=== PATIENT | male | born 1970 | race Caucasian/White ===

== ENCOUNTER → 2019-12-21 07:52 | Outpatient (CLI) | payer BC, SELFPAY ==
--- NOTE | 2019-12-21 07:57 | US_ITS ---
PROCEDURE: US LIVER CLINICAL INDICATION: ABNORMAL LIVER FUNCTION TEST COMPARISON: ABDPELW/WO CT ABD PELVIS W/WO CONTRAST from 05/21/2014 FINDINGS: PANCREAS: There is a 3.6 by 1.5 cm cyst in the region of the pancreatic head. LIVER: The liver has somewhat coarse echogenicity. There is appropriate direction of blood flow within the portal vein which appears slightly dilated at 16 mm. Collateral vessels are present in the periportal area. RIGHT KIDNEY: Unremarkable. Normal size and echogenicity. No hydronephrosis GALLBLADDER: Small stones are present. No gallbladder wall thickening, pericholecystic fluid, or biliary dilatation is evident. Mild splenomegaly at 14 cm. IMPRESSION: 1. Cholelithiasis. 2. Suspect portal hypertension with mildly prominent portal vein and collateral vessels in the portal region along with some mild coarse echogenicity of the liver suggesting cirrhosis Dictated by: Garrett Muñoz MD 12/21/2019 14:50 Electronically signed by Garrett Muñoz MD in [place] 12/21/2019 14:50
== END ==
PROVIDERS: PCP Nurse Practitioner; Visit Provider Nurse Practitioner
DX: R94.5 Abnormal results of liver function studies (principal)
CPT/HCPCS: 76705

== ENCOUNTER → 2021-01-09 06:59 | Outpatient (CLI) | payer BC, SELFPAY ==
--- NOTE | 2021-01-09 07:10 | XR_ITS ---
PROCEDURE: XR ELBOW RT 2V CLINICAL INDICATION: RT ELBOW PAIN COMPARISON: No exams were available for comparison FINDINGS: No fracture or dislocation. No lytic or blastic change. There is normal mineralization. 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 There is some sub cortical sclerotic changes at the capitellum. No displaced fat pad. Other findings:None. 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 There is some subcortical sclerosis of the capitellum which may only be related to the osteoarthritis. Osteochondrosis would be included in the differential diagnosis. Dictated by: Garrett Muñoz MD 01/09/2021 07:28 Garrett Muñoz MD in [facility] 01/09/2021 07:28
== END ==
PROVIDERS: PCP Nurse Practitioner Family; Visit Provider Nurse Practitioner Family
DX: M25.521 Pain in right elbow (principal)
CPT/HCPCS: 73070

== ENCOUNTER 2021-03-27 00:49 | Emergency (ER) | payer BC, SELFPAY ==
[2021-03-27] VITALS (32 sets, daily range): BP systolic 76–124; BP diastolic 35–57; PULSE 72–93; RESP 20–27; TEMP 37.1–39.4; O2SAT 91–98; BMI 37.2
--- NOTE | 2021-03-27 00:55 | ECG_ITS ---
APPROVED REPORT Exam: Resting ECG HR:91 bpm ECG Measurements Heart Rate 91 AXES NM 144 P 48 QRSd 96 QRS 69 QT 338 T 72 QTc 415 Conclusion Normal sinus rhythm Low voltage QRS Borderline ECG Electronically signed by : Tristan Edwards, 03/27/2021 22:00:01
--- NOTE | 2021-03-27 01:02 | XR_ITS ---
PROCEDURE INFORMATION: Exam: XR Chest Exam date and time: 03/27/2021 1:02 AM Age: 50 years old Clinical indication: Other: Weakness, dizzy, abdomen swelling, jaundice; Additional info: Weakness, dizziness TECHNIQUE: Imaging protocol: XR of the chest. Views: 2 views. COMPARISON: CR CXR CHEST(2 VIEWS-NOT PORTABLE) 05/24/2014 6:17 PM FINDINGS: Lungs: Unremarkable. No consolidation. Pleural spaces: Unremarkable. No pleural effusion. No pneumothorax. Heart/Mediastinum: Unremarkable. No cardiomegaly. Bones/joints: Unremarkable. IMPRESSION: No acute findings.
--- NOTE | 2021-03-27 01:06 | CT_ITS ---
PROCEDURE INFORMATION: Exam: CT Abdomen And Pelvis With Contrast Exam date and time: 03/27/2021 1:06 AM Age: 50 years old Clinical indication: Bloating and other: Jaundice; Patient HX: Swelling in abdomen, jaundice, alcohol abuse; Additional info: Abdominal swelling/jaundice/alcohol history TECHNIQUE: Imaging protocol: Computed tomography of the abdomen and pelvis with contrast. Radiation optimization: All CT scans at this facility use at least one of these dose optimization techniques: automated exposure control; mA and/or kV adjustment per patient size (includes targeted exams where dose is matched to clinical indication); or iterative reconstruction. Contrast material: ISOVUE; Contrast volume: 75 ml; Contrast route: IV; COMPARISON: ABDPELW/WO CT ABD PELVIS W/WO CONTRAST 05/21/2014 11:35 AM FINDINGS: Liver: Stable lobulation and shrunken appearance of a liver is seen which is of increased density. These findings are most consistent with changes of hepatic cirrhosis. Gallbladder and bile ducts: Within the lumen of the gallbladder are multiple areas of increased density most consistent with gallstones. Diffuse edema is seen throughout the gallbladder wall which is more prominent along the hepatic surface than otherwise. Differential diagnosis would include primary gallbladder disease and cholecystitis versus reactive edema in the gallbladder secondary to adjacent hepatic disease and ascites. No choledocholithiasis is seen. HIDA study could be obtained if clinically indicated. Pancreas: Normal. No ductal dilation. Spleen: Normal. No splenomegaly. Adrenal glands: Normal. No mass. Kidneys and ureters: Normal. No hydronephrosis. Stomach and bowel: Diffuse edema is suggested throughout the colon raising the possibility of colitis. This is seen to the level of the rectus sigmoid colon. Underfilling could give a similar appearance. Follow-up based on clinical and laboratory findings is suggested. Appendix: No evidence of appendicitis. Intraperitoneal space: There is mild diffuse ascites. Vasculature: Portal hypertension with anterior abdominal wall varices are demonstrated these varices have occurred since the prior study. There are no definite associated gastric or esophageal varices. Lymph nodes: Unremarkable. No enlarged lymph nodes. Urinary bladder: Unremarkable as visualized. Reproductive: Unremarkable as visualized. Bones/joints: Unremarkable. No acute fracture. Soft tissues: Unremarkable. IMPRESSION: 1. Within the lumen of the gallbladder are multiple areas of increased density most consistent with gallstones. Diffuse edema is seen throughout the gallbladder wall which is more prominent along the hepatic surface than otherwise. Differential diagnosis would include primary gallbladder disease and cholecystitis versus reactive edema in the gallbladder secondary to adjacent hepatic disease and ascites. No choledocholithiasis is seen. HIDA study could be obtained if clinically indicated. 2. Diffuse edema is suggested throughout the colon raising the possibility of colitis. This is seen to the level of the rectus sigmoid colon. Underfilling could give a similar appearance. Follow-up based on clinical and laboratory findings is suggested. 3. Portal hypertension with anterior abdominal wall varices are demonstrated these varices have occurred since the prior study. There are no definite associated gastric or esophageal varices.
[2021-03-27 01:12] LABS: POC Glucose,Bedside 229 (70-110)
[2021-03-27 01:19] LABS: Basophils % 0.1 % (0.1-2.0); Eosinophils % 0.1 % (0.1-12.0); Hematocrit 46.1 % (42.0-52.0); Hemoglobin 15.8 g/dL (14.1-18.0); Lymphocytes # 0.1 K/mm3 (0.7-4.5); Lymphocytes % 2.3 % (10-50); Mean Corpuscular HGB Conc 34.2 g/dL (31.8-35.4); Mean Corpuscular Hemoglobin 34.4 pg (27.0-31.2); Mean Corpuscular Volume 100.6 fl (80-94); Mean Platelet Volume 10.7 fl (7.4-10.4); Monocytes # 0.4 K/mm3 (0.1-1.0); Monocytes % 6.5 % (1.7-9.3); Neutrophils % 91.1 % (37.0-80.0); Platelet Count 51 K/mm3 (142-424); Red Blood Count 4.59 M/mm3 (4.60-6.20); Red Cell Distribution Width 15.9 % (11.5-17.5); White Blood Count 5.5 K/mm3 (4.8-10.8)
[2021-03-27 01:20] LABS: Microscopic, Urine URINE MICROSCOPIC (MICROSCOPIC)
[2021-03-27 01:22] LABS: Appearance,Urine CLEAR (Clear); Blood, Urine 2+ (Negative); Color,Urine DK YELLOW (Yellow); Glucose,Urine (UA) 3+ (Negative); Ketones,Urine Negative (Negative); Leukocyte Esterase,Urine Negative (Negative); Nitrate,Urine Negative (Negative); Protein,Urine Negative (Negative); Specific Gravity, Urine 1.015 (1.005-1.030)
[2021-03-27 01:25] LABS: Bilirubin,Urine Negative (Negative)
[2021-03-27 01:26] LABS: MANUAL DIFFERENTIAL MANUAL DIFFERENTIAL (MANUAL DIFF)
[2021-03-27 01:30] LABS: Alanine Aminotransferase 53 U/L (12-78); Albumin Level 2.6 g/dl (3.5-5.0); Alkaline Phosphatase 317 U/L (38-126); Anion Gap 10.7 mEq/L (5-15); Aspartate Amino Transferase 76 U/L (17-59); Bilirubin, Conjugated 1.3 mg/dL (0.0-0.3); Bilirubin,Direct 2.5 mg/dl (0.0-0.4); Bilirubin,Indirect 1.9 mg/dL (0.0-0.9); Bilirubin,Total 4.4 mg/dl (0.2-1.3); Bilirubin,Unconjugated 1.9 mg/dL (0.0-1.1); Blood Urea Nitrogen 46 mg/dl (9-20); Calcium 8.4 mg/dl (8.4-10.2); Carbon Dioxide 21 mmol/L (22.0-30.0); Chloride 96 mmol/L (98-107); Creatinine Clearance Estimated 88 mL/min (50-200); Estimated Glomerular Filt Rate 46 ml/min (>60); GFR (African American) 56 ML/MIN (>60); Glucose 244 mg/dl (74-100); Potassium 3.7 mmoL/L (3.5-5.1); Sodium 124 mmol/L (136-145); Total Protein,Serum 6.2 g/dl (6.3-8.2)
[2021-03-27 01:30] LABS: Amorphous Sediment,Urine 1+ /lpf; Bacteria,Urine 1+ /lpf; Mucus,Urine 1+ /lpf
[2021-03-27 01:34] LABS: Ethyl Alcohol < 10 mg/dl (0-10)
[2021-03-27 01:36] LABS: C-Reactive Protein 78.6 mg/L (0-4)
[2021-03-27 01:37] LABS: Barbiturates Screen,Urine Negative ng/ml (<200); Benzodiazepines Screen,Urine Negative ng/ml (<200)
[2021-03-27 01:38] LABS: Amphetamine/Metha Screen,Urine Negative ng/ml (<1000)
[2021-03-27 01:39] LABS: Cocaine Screen,Urine Negative ng/ml (<300); Methadone Screen,Urine Negative ng/ml (<300)
[2021-03-27 01:40] LABS: Cannabinoid Screen,Urine Negative ng/ml (<50); Opiate Screen,Urine Negative ng/ml (<300)
[2021-03-27 01:41] LABS: Phencyclidine Screen,Urine Negative ng/ml (<25)
[2021-03-27 01:42] LABS: NT Pro Brain Natriuretic Pep. 2180 pg/mL (0-125)
[2021-03-27 01:46] LABS: Troponin I 0.02 ng/ml (0.00-0.034)
[2021-03-27 01:49] LABS: Procalcitonin 19.5 ng/mL (0.0-2.0)
[2021-03-27 01:50] LABS: Acetone, Serum (Rapid) None Detected (None Detect); T4 (Thyroxine) 4.8 ug/dl (5.53-11.0)
[2021-03-27 01:54] LABS: Lymphocytes % 3 % (10-50); Neutrophils % 97 % (42-76); Platelet Estimate Normal; Total Cells Counted 100
[2021-03-27 01:55] LABS: Macrocytosis 1+
[2021-03-27 01:57] LABS: Erythrocyte Sedimentation Rate 25 mm/hr (0-15)
--- NOTE | 2021-03-27 01:57 | PC.NURSE ---
patient to radiology
[2021-03-27 02:04] LABS: Thyroid Stimulating Hormone 1.09 uIU/mL (0.465-4.68)
--- NOTE | 2021-03-27 02:07 | HMH.EDWEAK ---
ED Disposition Clinical Impression: Severe sepsis with acute organ dysfunction, Septic shock, Cholecystitis Diabetes mellitus Qualifiers: Diabetes mellitus type: type 2 Diabetes mellitus long-term insulin use: unspecified long-term insulin use status Diabetes mellitus complication status: with other specified complication Qualified Code(s): E11.69 - Type 2 diabetes mellitus with other specified complication Cirrhosis Qualifiers: Hepatic cirrhosis type: unspecified hepatic cirrhosis Ascites presence: without ascites Qualified Code(s): K74.60 - Unspecified cirrhosis of liver Liver failure Qualifiers: Liver failure chronicity: unspecified chronicity Hepatic coma status: without hepatic coma Qualified Code(s): K72.90 - Hepatic failure, unspecified without coma Disposition: Xfer Short-Term Hosp Condition on Discharge: Critical Referrals: Anamika Willson [Primary Care Provider] - - Critical Care Critical Care Time: Yes Attestation: On 03/27/21, the high probability of a clinically significant, sudden or life threatening deterioration of the following system(s) required my full and direct attention, intervention and personal management. The time I documented below is in addition to time spent performing reported procedures but includes the following listed in this critical care notation. Total Critical Care Time: 90 Vital system(s) involved:: Shock (Septic) My critical care processes included: Assessment & monitoring of V/S, Initial and Re-exams, Data Review/Interpretation, Coordinating Care, Medication Orders and management, Documentation Medical Decision Making - Medical Records Medical records reviewed: Yes: I reviewed the patient's medical records. - Francois Inquiry Pt receiving controlled substance: No Vital Signs: 03/27/21 00:56 03/27/21 01:14 03/27/21 01:30 Temperature 102.9 F H Temperature Source Oral Pulse Rate 93 H 83 Pulse Rate [Right Brachial] 87 Respiratory Rate 21 Blood Pressure 123/54 L 111/56 L Blood Pressure [Right Arm] 103/50 L Blood Pressure Mean Blood Pressure Mean [Right Arm] 67 Blood Pressure Source [Right Arm] Automatic Cuff Blood Pressure Position [Right Arm] Sitting 02 Sat by Pulse Oximetry 97 95 93 L Oxygen Delivery Method Room Air 03/27/21 02:28 03/27/21 02:31 03/27/21 02:32 Temperature Temperature Source Pulse Rate 80 78 76 Pulse Rate [Right Brachial] Respiratory Rate Blood Pressure 124/47 L Blood Pressure [Right Arm] Blood Pressure Mean 62 Blood Pressure Mean [Right Arm] Blood Pressure Source [Right Arm] Blood Pressure Position [Right Arm] 02 Sat by Pulse Oximetry 95 93 L 94 L Oxygen Delivery Method 03/27/21 02:36 03/27/21 02:38 03/27/21 02:46 Temperature Temperature Source Pulse Rate 85 72 73 Pulse Rate [Right Brachial] Respiratory Rate 21 24 Blood Pressure 77/42 L 78/41 L Blood Pressure [Right Arm] Blood Pressure Mean 52 48 Blood Pressure Mean [Right Arm] Blood Pressure Source [Right Arm] Blood Pressure Position [Right Arm] 02 Sat by Pulse Oximetry 95 95 95 Oxygen Delivery Method 03/27/21 02:50 03/27/21 02:59 03/27/21 03:00 Temperature Temperature Source Pulse Rate 74 73 75 Pulse Rate [Right Brachial] Respiratory Rate 24 23 25 H Blood Pressure 81/39 L 86/41 L 86/45 L Blood Pressure [Right Arm] Blood Pressure Mean 48 49 53 Blood Pressure Mean [Right Arm] Blood Pressure Source [Right Arm] Blood Pressure Position [Right Arm] 02 Sat by Pulse Oximetry 96 95 96 Oxygen Delivery Method 03/27/21 03:10 03/27/21 03:30 03/27/21 03:50 Temperature Temperature Source Pulse Rate 75 77 Pulse Rate [Right Brachial] Respiratory Rate 20 21 Blood Pressure 85/39 L 76/35 L 81/41 L Blood Pressure [Right Arm] Blood Pressure Mean 51 49 Blood Pressure Mean [Right Arm] Blood Pressure Source [Right Arm] Blood Pressure Position [Right Arm] 02
[2021-03-27 02:21] LABS: Lipase 190 U/L (23-300)
[2021-03-27 02:23] LABS: Amylase < 30 U/L (30-110)
--- NOTE | 2021-03-27 02:40 | PC.NURSE ---
pt repositioned himself and bp decreased. repostioned patient and administered fluid bolus. noted.
[2021-03-27 02:41] LABS: Ammonia 46 umol/L (9-30)
--- NOTE | 2021-03-27 03:40 | PC.NURSE ---
spoke with the [facility]
[2021-03-27 03:55] LABS: Prothrombin Time 19.8 seconds (10.1-12.5)
--- NOTE | 2021-03-27 03:56 | PC.NURSE ---
call placed to [phone], [facility]; no beds, placed on list. stated it could be as much as two days.
[2021-03-27 03:57] LABS: Activated Partial Thrombo Time 36.9 seconds (22.8-30.6); INR 1.75 (0.9-1.1)
--- NOTE | 2021-03-27 04:00 | PC.NURSE ---
contacted [facility], no beds available. waiting application development consultant back.
--- NOTE | 2021-03-27 04:01 | PC.NURSE ---
called [facility], spoke with kacey. no beds available in the [facility].
--- NOTE | 2021-03-27 04:09 | PC.NURSE ---
call placed to [facility]. no beds available.
--- NOTE | 2021-03-27 04:10 | PC.NURSE ---
contacted [facility]: only taking trauma,strokes and nelson. Called [facility] [phone]. spoke with michelet. waiting cotton weigher back at this time. spoke with michelet
--- NOTE | 2021-03-27 04:12 | PC.NURSE ---
increased levophed to 10mcg/min at this time secondary to bp hypotensive moment.
--- NOTE | 2021-03-27 04:24 | PC.NURSE ---
dr dominguez called back from [facility]. spoke with .
[2021-03-27 04:42] LABS: Troponin I 0.04 ng/ml (0.00-0.034)
--- NOTE | 2021-03-27 05:04 | PC.NURSE ---
CALL RECEIVED FROM [facility] AT THIS TIME. 10 MIN ETA
== END 2021-03-27 05:41 | disposition short-term general hospital (02) ==
PROVIDERS: Emergency Provider Emergency Medicine; PCP Nurse Practitioner Family
DX: A41.9 Sepsis, unspecified organism (principal); K74.60 Unspecified cirrhosis of liver; K72.90 Hepatic failure, unspecified without coma; K81.9 Cholecystitis, unspecified; E11.65 Type 2 diabetes mellitus with hyperglycemia; I10 Essential (primary) hypertension; E78.5 Hyperlipidemia, unspecified; F17.210 Nicotine dependence, cigarettes, uncomplicated
CPT/HCPCS: 71046; 74177; 80048; 80076; 80305; 81001; 82009; 82140; 82150; 82962; 83605; 83690; 83880; 84145; 84436; 84443; 84484; 85007; 85025; 85610; 85651; 85730; 86140; 87040; 87077; 87186; 93005; 96365; 96366; 96367; 96375; 99284; J0692; Q9967; U0003

== ENCOUNTER → 2021-04-09 11:55 | Outpatient (CLI) | payer BC, SELFPAY ==
[2021-04-09 14:03] LABS: Basophils # 0.1 K/mm3 (0-0.2); Basophils % 0.9 % (0.1-2.0); Eosinophils # 0.2 K/mm3 (0.0-0.4); Eosinophils % 1.2 % (0.1-12.0); Hematocrit 41.5 % (42.0-52.0); Hemoglobin 13.8 g/dL (14.1-18.0); Lymphocytes # 0.9 K/mm3 (0.7-4.5); Lymphocytes % 6.3 % (10-50); Mean Corpuscular HGB Conc 33.3 g/dL (31.8-35.4); Mean Corpuscular Hemoglobin 36.1 pg (27.0-31.2); Mean Corpuscular Volume 108.6 fl (80-94); Mean Platelet Volume 10.5 fl (7.4-10.4); Monocytes # 1.3 K/mm3 (0.1-1.0); Monocytes % 9.5 % (1.7-9.3); Neutrophils # 11.4 K/mm3 (1.8-7.8); Neutrophils % 82.1 % (37.0-80.0); Platelet Count 65 K/mm3 (142-424); Red Blood Count 3.82 M/mm3 (4.60-6.20); Red Cell Distribution Width 16.2 % (11.5-17.5); White Blood Count 13.9 K/mm3 (4.8-10.8)
[2021-04-09 14:35] LABS: Alanine Aminotransferase 35 U/L (12-78); Albumin Level 2.2 g/dl (3.5-5.0); Alkaline Phosphatase 279 U/L (38-126); Anion Gap 8.3 mEq/L (5-15); Aspartate Amino Transferase 62 U/L (17-59); Bilirubin,Direct 1.2 mg/dl (0.0-0.4); Bilirubin,Indirect 1.9 mg/dL (0.0-0.9); Bilirubin,Total 3.1 mg/dl (0.2-1.3); Bilirubin,Unconjugated 1.9 mg/dL (0.0-1.1); Blood Urea Nitrogen 20 mg/dl (9-20); Calcium 7.9 mg/dl (8.4-10.2); Carbon Dioxide 27 mmol/L (22.0-30.0); Chloride 98 mmol/L (98-107); Estimated Glomerular Filt Rate 103 ml/min (>60); GFR (African American) 124 ML/MIN (>60); Glucose 259 mg/dl (74-100); Potassium 4.3 mmoL/L (3.5-5.1); Sodium 129 mmol/L (136-145); Total Protein,Serum 6.2 g/dl (6.3-8.2)
[2021-04-09 14:41] LABS: C-Reactive Protein 12.6 mg/L (0-4)
[2021-04-09 16:23] LABS: Erythrocyte Sedimentation Rate 21 mm/hr (0-15)
== END ==
PROVIDERS: Visit Provider Nurse Practitioner Family
DX: J96.21 Acute and chronic respiratory failure with hypoxia (principal)
CPT/HCPCS: 80048; 80076; 85025; 85651; 86140

== ENCOUNTER 2021-04-09 14:32 | Emergency (ER) | payer BC, SELFPAY ==
[2021-04-09] VITALS (19 sets, daily range): BP systolic 0–109; BP diastolic 0–73; PULSE 0–110; RESP 0–34; TEMP -17.7–36.8; O2SAT 0–99; BMI 37.6; BMI 376532.6
--- NOTE | 2021-04-09 14:29 | ECG_ITS ---
APPROVED REPORT Exam: Resting ECG HR:81 bpm ECG Measurements Heart Rate 81 AXES WY 148 P 58 QRSd 90 QRS 32 QT 376 T 56 QTc 436 Conclusion Normal sinus rhythm Low voltage QRS Nonspecific ST abnormality Abnormal ECG Electronically signed by : Tristan Edwards, 04/11/2021 17:40:25
--- NOTE | 2021-04-09 14:37 | XR_ITS ---
PROCEDURE: XR CHEST PORTABLE CLINICAL HISTORY: SOB COMPARISON: CR CXR CHEST(2 VIEWS-NOT PORTABLE) from 05/24/2014 CR XR CHEST 2V from 03/27/2021 FINDINGS: There is cardiomegaly with pulmonary venous congestion interstitial and alveolar edema consistent with CHF or plasma volume overload with pulmonary edema. Diffuse pneumonia or ARDS is included in the differential diagnosis. There is a right upper extremity PICC line. The line is curled over the right apex with the tip projecting back down over the clavicular head region. No acute bony abnormalities. IMPRESSION: CHF or plasma volume overload with alveolar and interstitial edema versus diffuse pneumonia or ARDS. Malpositioned right PICC line. Dictated by: Garrett Muñoz MD 04/09/2021 15:41 Garrett Muñoz MD in [place] 04/09/2021 15:41
--- NOTE | 2021-04-09 14:47 | HMH.EDGENADL ---
ED Disposition Clinical Impression: Acute and chronic respiratory failure with hypoxia Pneumonia Qualifiers: Pneumonia type: due to unspecified organism Laterality: bilateral Lung location: unspecified part of lung Qualified Code(s): J18.9 - Pneumonia, unspecified organism Hypotension Qualifiers: Hypotension type: unspecified hypotension type Qualified Code(s): I95.9 - Hypotension, unspecified Disposition: Still a Patient Condition on Discharge: Fair Referrals: Provider,Referral, MD [Primary Care Provider] - Forms: Transfer Record - ED - Critical Care Critical Care Time: No Attestation: On 04/09/21, the high probability of a clinically significant, sudden or life threatening deterioration of the following system(s) required my full and direct attention, intervention and personal management. The time I documented below is in addition to time spent performing reported procedures but includes the following listed in this critical care notation. Medical Decision Making - Francois Inquiry Pt receiving controlled substance: No Vital Signs: 04/09/21 15:00 04/09/21 15:30 04/09/21 16:00 Pulse Rate 79 78 84 Respiratory Rate 30 H 24 28 H Blood Pressure 103/53 L 105/52 L 95/42 L Blood Pressure Mean 75 59 Blood Pressure Position Sitting 02 Sat by Pulse Oximetry 95 90 L 91 L Oxygen Delivery Method Non-Rebreather Non-Rebreather Oxygen Flow Rate (LPM) 15 04/09/21 16:30 04/09/21 17:00 04/09/21 17:30 Pulse Rate 76 75 Respiratory Rate 25 H Blood Pressure 104/54 L 97/45 L 106/38 L Blood Pressure Mean 70 68 60 Blood Pressure Position 02 Sat by Pulse Oximetry 91 L 93 L 92 L Oxygen Delivery Method Non-Rebreather Non-Rebreather Oxygen Flow Rate (LPM) 15 04/09/21 18:01 04/09/21 18:13 04/09/21 18:22 Pulse Rate 70 79 Respiratory Rate 29 H 32 H Blood Pressure 80/47 L 85/38 L 94/41 L Blood Pressure Mean 58 65 57 Blood Pressure Position 02 Sat by Pulse Oximetry 91 L Oxygen Delivery Method Oxygen Flow Rate (LPM) 04/09/21 18:30 04/09/21 18:38 Pulse Rate 82 77 Respiratory Rate 30 H 24 Blood Pressure 89/36 L 88/36 L Blood Pressure Mean 57 64 Blood Pressure Position 02 Sat by Pulse Oximetry 94 L Oxygen Delivery Method Oxygen Flow Rate (LPM) - Lab Data Lab results reviewed: Yes: I reviewed the patient's lab results. Lab Results 04/09/21 15:05: WBC 15.2 H, RBC 4.13 L, Hgb 14.5, Hct 44.2, MCV 107.2 H, MCH 35.1 H, MCHC 32.7, RDW 16.3, Plt Count 76 L, MPV 9.6, Neut % (Auto) 85.8 H, Lymph % (Auto) 5.6 L, Bay % (Auto) 6.3, Eos % (Auto) 1.4, Baso % (Auto) 1.0, Neut # (Auto) 13.0 H, Lymph # (Auto) 0.8, Bay # (Auto) 1.0, Eos # (Auto) 0.2, Baso # (Auto) 0.2, Total Counted 100, Neutrophils % (Manual) 88 H, Lymphocytes % (Manual) 7 L, Monocytes % (Manual) 5, Platelet Estimate Slight decrease, Anisocytosis 1+, Macrocytosis 2+ 04/09/21 15:05: Sodium 128 L, Potassium 4.9, Chloride 98, Carbon Dioxide 26, Anion Gap 8.9, BUN 22 H, Creatinine 1.00 D, Estimated Creat Clear 155, Estimated GFR 79, Est GFR ( Amer) 96 D, Glucose 211 H, Calcium 8.0 L, Total Bilirubin 4.1 H, AST 70 H, ALT 37, Alkaline Phosphatase 312 H, Troponin I 0.10 H, Total Protein 6.9, Albumin 2.6 L D, Globulin 4.3 H, Albumin/Globulin Ratio 0.6 L 04/09/21 15:05: Lactate 1.5 04/09/21 15:05: NT-Pro-B Natriuret Pep 2550 H 04/09/21 15:15: PT 19.3 H, INR 1.70 H 04/09/21 18:15: Troponin I 0.13 H Result diagrams: 04/09/21 15:05 04/09/21 15:05 Orders (Tests/Meds): ED MEDICATIONS Generic Name Dose Route Start Last Admin Trade Name Freq PRN Reason Stop Dose Admin Vancomycin HCl 1,500 mg 04/09/21 17:00 Vancomycin 1000mg Vial IV 04/09/21 17:01 ONCE ONE Protocol Discontinued Medications Generic Name Dose Route Start Last Admin Trade Name Freq PRN Reason Stop Dose Admin Hydromorphone HCl 0.5 mg 04/09/21 18:50 04/09/21 15:12 Hydromorphone 2mg/Ml Syringe IV 04/09/21 18:51 0.5 mg ONCE ONE
--- NOTE | 2021-04-09 14:50 | PC.NURSE ---
3+ EDEMA NOTED TO FEET, ANKLES, UP TO THIGHS.
--- NOTE | 2021-04-09 15:30 | PC.NURSE ---
PT CONTINUES TO C/O SOB. FAMILY AT BEDSIDE
[2021-04-09 15:47] LABS: Lactic Acid 1.5 mmol/L (0.7-2.1)
[2021-04-09 15:48] LABS: Basophils # 0.2 K/mm3 (0-0.2); Eosinophils # 0.2 K/mm3 (0.0-0.4); Eosinophils % 1.4 % (0.1-12.0); Hematocrit 44.2 % (42.0-52.0); Hemoglobin 14.5 g/dL (14.1-18.0); Lymphocytes # 0.8 K/mm3 (0.7-4.5); Lymphocytes % 5.6 % (10-50); Mean Corpuscular HGB Conc 32.7 g/dL (31.8-35.4); Mean Corpuscular Hemoglobin 35.1 pg (27.0-31.2); Mean Corpuscular Volume 107.2 fl (80-94); Mean Platelet Volume 9.6 fl (7.4-10.4); Monocytes % 6.3 % (1.7-9.3); Neutrophils % 85.8 % (37.0-80.0); Platelet Count 76 K/mm3 (142-424); Red Blood Count 4.13 M/mm3 (4.60-6.20); Red Cell Distribution Width 16.3 % (11.5-17.5); White Blood Count 15.2 K/mm3 (4.8-10.8)
[2021-04-09 15:50] LABS: Chloride 98 mmol/L (98-107); MANUAL DIFFERENTIAL MANUAL DIFFERENTIAL (MANUAL DIFF); Potassium 4.9 mmoL/L (3.5-5.1); Sodium 128 mmol/L (136-145)
[2021-04-09 15:53] LABS: Alanine Aminotransferase 37 U/L (12-78); Albumin Level 2.6 g/dl (3.5-5.0); Albumin/Globulin Ratio 0.6 (1.1-1.8); Alkaline Phosphatase 312 U/L (38-126); Anion Gap 8.9 mEq/L (5-15); Aspartate Amino Transferase 70 U/L (17-59); Bilirubin,Total 4.1 mg/dl (0.2-1.3); Blood Urea Nitrogen 22 mg/dl (9-20); Carbon Dioxide 26 mmol/L (22.0-30.0); Creatinine Clearance Estimated 155 mL/min (50-200); Estimated Glomerular Filt Rate 79 ml/min (>60); GFR (African American) 96 ML/MIN (>60); Globulin 4.3 g/dL (1.3-3.2); Glucose 211 mg/dl (74-100); Total Protein,Serum 6.9 g/dl (6.3-8.2)
[2021-04-09 16:03] LABS: NT Pro Brain Natriuretic Pep. 2550 pg/mL (0-125)
[2021-04-09 16:24] LABS: Prothrombin Time 19.3 seconds (10.1-12.5)
--- NOTE | 2021-04-09 16:30 | PC.NURSE ---
PT CONTINUES ON NONREBREATHER. CONTINUES TO C/O SOB.
[2021-04-09 17:06] LABS: Lymphocytes % 7 % (10-50); Monocytes % 5 % (2-9); Neutrophils % 88 % (42-76); Platelet Estimate Slight Decrease; Total Cells Counted 100
[2021-04-09 17:07] LABS: Anisocytosis 1+; Macrocytosis 2+
--- NOTE | 2021-04-09 17:46 | PC.NURSE ---
CALL PLACE TO [facility]
--- NOTE | 2021-04-09 18:15 | PC.NURSE ---
CALLED [facility] FOR POSSIBLE ADMISSION. WAITING LIST SINCE 04/06
--- NOTE | 2021-04-09 18:31 | PC.NURSE ---
CALLED [facility] FOR POSSIBLE ADMISSION
--- NOTE | 2021-04-09 18:40 | PC.NURSE ---
[facility] RETURNED CALL PT WILL HAVE TO GO TO ICU WITH NON REBREATHER
--- NOTE | 2021-04-09 18:45 | PC.NURSE ---
DR LAYTON REVIEWED CHEST XRAY, OK TO USE PICC LINE FOR IV DRAWS AND FOR MEDS
[2021-04-09 18:57] LABS: Troponin I 0.13 ng/ml (0.00-0.034)
[2021-04-09 19:09] LABS: Coronavirus 19, PCR Not Detected (NotDetected); Influenza A, PCR Not Detected (NotDetected); Influenza B, PCR Not Detected (NotDetected)
--- NOTE | 2021-04-09 19:40 | PC.NURSE ---
ATTEMPTED TO PUT PATIENT ON VAPOTHERM. PT STATED THAT SOMETHING HOT WAS ON HIS MOUTH AND REFUSED TO WEAR IT. PLACED BACK ON NRB ON 15L.
--- NOTE | 2021-04-09 19:52 | PC.NURSE ---
PT COMPLAINING OF CHEST DISCOMFORT. ER NURSE ATTEMPTED TO OBTAIN NEW EKG SECONDARY TO DISCOMFORT. WAS TOLD BY MD NOT TO GET IT AT THAT TIME, HE WAS TRYING TO CONVINCE HIM TO LET HIM INTUBATE.
--- NOTE | 2021-04-09 21:06 | PC.NURSE ---
called to room for burke lemus . pt had been up to the bsc and upon standing to turn and transfer back to the bed, became unresponsive and cyanotic. pt assisted to bed by multiple staff members. pulse unable to palpate. chest compressions initiated while placing zoll pads to chest and posterior lateral trunk. initial rhythm PEA
--- NOTE | 2021-04-09 21:09 | PC.NURSE ---
epinephrine given via right PICC access. attempts at new IV at this time.
[2021-04-09 21:12] LABS: Troponin I 0.15 ng/ml (0.00-0.034)
--- NOTE | 2021-04-09 21:13 | PC.NURSE ---
calcium and bicarb administered per md order. unable to achieve airway despite using RSI medications. RT at head of bed providing O2 with BVM at this time. LMA placement per MD at this time.
--- NOTE | 2021-04-09 21:16 | PC.NURSE ---
epinephrine given at this time per md order.
--- NOTE | 2021-04-09 21:21 | PC.NURSE ---
epinephrine given per md order.
--- NOTE | 2021-04-09 22:03 | PC.NURSE ---
contacted [facility]. pt was ruled out
== END 2021-04-09 23:57 | disposition expired ==
PROVIDERS: Family Medicine; Emergency Provider Emergency Medicine
DX: I46.9 Cardiac arrest, cause unspecified (principal); J96.21 Acute and chronic respiratory failure with hypoxia; I33.9 Acute and subacute endocarditis, unspecified; J18.9 Pneumonia, unspecified organism; E87.70 Fluid overload, unspecified; I95.9 Hypotension, unspecified; J44.9 Chronic obstructive pulmonary disease, unspecified; E78.5 Hyperlipidemia, unspecified; F17.210 Nicotine dependence, cigarettes, uncomplicated
CPT/HCPCS: 36415; 71045; 80053; 83605; 83880; 84484; 85007; 85025; 85610; 87040; 92950; 93005; 96365; 96375; 99291; J3370; U0003